=== PATIENT | female | born 1940 | race African-American/Black ===

== ENCOUNTER 2022-03-11 16:15 | Inpatient (IN) | payer OTHER ==
[2022-03-11] MEDS ORDERED: VANCOMYCIN 1 GM in D5W (PRE-DOCKED) 1,000 MG/250 ML IVPB ONE (16:53)
[2022-03-11] MEDS ORDERED: CEFEPIME HCL/D5W 2 GM/50 ML BAG IVPB ONE (16:53)
[2022-03-11] MEDS ORDERED: levETIRAcetam 500 MG/5 ML INJECTION VIAL IVPB ONE ×2 (16:53→17:59)
[2022-03-11 17:34] LABS: ARTERIAL BLD GAS O2 SATURATION 98.2 % (95-98); ARTERIAL BLOOD GAS BASE EXCESS 10.3 mmol/L (-2-2); ARTERIAL BLOOD GAS PO2 113.8 mmHg (80-100); ARTERIAL BLOOD GAS pH 7.436 (7.350-7.450)
[2022-03-11 17:41] LABS: BASO % 0.3 % (0-2.0); EOS % 0.5 % (0-4.5); HEMATOCRIT 27.6 % (32.4-45.2); HEMOGLOBIN 9.1 GM/dL (10.7-15.3); LYMPH % 20.2 % (8-40); MCH 33.9 pg (25.7-33.7); MCHC 33.1 g/dl (32.0-36.0); MEAN CELL VOLUME 102.4 fl (80-96); MEAN PLT VOLUME 10.6 fl (7.5-11.1); MONO % 16.3 % (3.8-10.2); NEUT % 62.7 % (42.8-82.8); PLATELET COUNT 147 10^3/uL (134-434); RBC 2.69 M/mm3 (3.60-5.2); RDW 22.4 % (11.6-15.6); WHITE BLOOD COUNT 7.4 K/mm3 (4.0-10.0)
[2022-03-11 17:47] LABS: INR 1.4 (0.83-1.09); PROTHROMBIN TIME (PATIENT) 16.1 SEC (9.7-13.0)
[2022-03-11 17:50] LABS: ACTIVATED PTT 36.8 SECONDS (25.2-36.5)
[2022-03-11 17:59] LABS: CHLORIDE 101 mmol/L (98-107); SODIUM 138 mmol/L (136-145)
[2022-03-11] MEDS ORDERED: VANCOMYCIN/WATER FOR INJ (PEG) 1,000 MG/200 ML BAG IVPB ONE (18:00)
[2022-03-11] MEDS ORDERED: CEFEPIME 2 GM/100 ML BAG IVPB ONE (18:00)
[2022-03-11 18:01] LABS: ALBUMIN 1.3 g/dl (3.4-5.0); CALCIUM 8.3 mg/dL (8.5-10.1)
[2022-03-11 18:02] LABS: ANION GAP 3 MMOL/L (8-16); BLOOD UREA NITROGEN 27.1 mg/dL (7-18); CO2 34 mmol/L (21-32); GLUCOSE,RANDOM 84 mg/dL (74-106)
[2022-03-11 18:05] LABS: CREATININE 0.4 mg/dL (0.55-1.3)
[2022-03-11 18:06] LABS: SGOT/AST 25 U/L (15-37); SGPT/ALT 8 U/L (13-61)
[2022-03-11 18:07] LABS: ALK PHOS 86 U/L (45-117); BILIRUBIN,TOTAL 0.4 mg/dL (0.2-1); TOT PROT 6.7 g/dl (6.4-8.2)
[2022-03-11 18:08] LABS: ANISOCYTOSIS 3+; MACROCYTOSIS 2+; TARGET CELLS 1+
[2022-03-11 18:43] LABS: EPI CELLS 2 /uL (0-25.1); HYALINE CASTS 0 /uL (0-3.1); PH,URINE 5.5 (5.0-8.0); URINE APPEARANCE Error; URINE BACTERIA 582 /uL (0-1359); URINE BILIRUBIN NEGATIVE (NEGATIVE); URINE COLOR DK YELLOW; URINE GLUCOSE (UA) NEGATIVE (NEGATIVE); URINE KETONE NEGATIVE (NEGATIVE); URINE LEUK ESTERASE 3+ (NEGATIVE); URINE NITRITE NEGATIVE (NEGATIVE); URINE PROTEIN 1+ (NEGATIVE); URINE RBC 51 /uL (0-23.9); URINE WBC 1336 /uL (0-25.8)
[2022-03-11] MEDS ORDERED: ACETAMINOPHEN 325 MG TABLET (FP) PO PRN ×2 (22:31→23:25)
[2022-03-11] MEDS ORDERED: FUROSEMIDE 40 MG/4 ML INJECTABLE VIAL IVPUSH ONE (23:40)
[2022-03-11] MEDS ORDERED: ZINC OXIDE/PANTHENOL/VITAMIN E 56 GM TUBE TP PRN (23:42)
[2022-03-11] MEDS ORDERED: CEFEPIME 2 GM in DEXTROSE 5%-WATER 100 ML IVPB SCH (23:45)
[2022-03-12] MEDS ORDERED: BISACODYL 10 MG SUPP.RECT PR PRN (00:37)
[2022-03-12] MEDS ORDERED: LORazepam 2 MG/ML SDV VIAL SCH (00:45)
[2022-03-12 05:46] LABS: ARTERIAL BLD GAS O2 SATURATION 97.7 % (95-98); ARTERIAL BLOOD GAS BASE EXCESS 10.4 mmol/L (-2-2); ARTERIAL BLOOD GAS PO2 103.5 mmHg (80-100); ARTERIAL BLOOD GAS pH 7.424 (7.350-7.450)
[2022-03-12 05:50] LABS: ALLENS TEST POSITIVE
[2022-03-12] MEDS: levETIRAcetam 500 MG/5 ML ORAL SOLUTION (UNIT-DOSE CUPS) PO SCH ×3 (06:28→22:03)
[2022-03-12] MEDS ORDERED: FUROSEMIDE 40 MG/4 ML INJECTABLE VIAL IVPUSH ONE ×2 (06:30→06:55)
[2022-03-12 07:36] LABS: INR 1.32 (0.83-1.09); PROTHROMBIN TIME (PATIENT) 15.2 SEC (9.7-13.0)
[2022-03-12 07:38] LABS: ACTIVATED PTT 36.9 SECONDS (25.2-36.5)
[2022-03-12] MEDS ORDERED: VANCOMYCIN/WATER 1,250 MG/250 ML BAG IVPB SCH (08:00)
[2022-03-12 08:05] LABS: CHLORIDE 103 mmol/L (98-107); SODIUM 141 mmol/L (136-145)
[2022-03-12 08:06] LABS: CALCIUM 8.1 mg/dL (8.5-10.1)
[2022-03-12 08:07] LABS: ALBUMIN 1.2 g/dl (3.4-5.0); ANION GAP 5 MMOL/L (8-16); CO2 34 mmol/L (21-32); GLUCOSE,RANDOM 61 mg/dL (74-106); MAGNESIUM 2.1 mg/dL (1.8-2.4)
[2022-03-12 08:10] LABS: CREATININE 0.3 mg/dL (0.55-1.3); PHOSPHOROUS 2.9 mg/dL (2.5-4.9); SGOT/AST 28 U/L (15-37); SGPT/ALT 10 U/L (13-61)
[2022-03-12 08:11] LABS: BILIRUBIN,TOTAL 0.6 mg/dL (0.2-1); TOT PROT 6.8 g/dl (6.4-8.2)
[2022-03-12 08:13] LABS: ALK PHOS 78 U/L (45-117)
[2022-03-12 08:15] LABS: N-TERMINAL BNP 5931.8 pg/ml (5-450)
[2022-03-12] MEDS: VANCOMYCIN/WATER 1,250 MG/250 ML BAG IVPB SCH ×2 (08:20→20:31)
[2022-03-12] MEDS: APIXABAN 5 MG TABLET PO SCH ×2 (09:33→22:03)
[2022-03-12] MEDS: FAMOTIDINE 20 MG TABLET PO SCH ×2 (09:33→22:03)
[2022-03-12] MEDS: POLYETHYLENE GLYCOL (HEALTHYLAX) 3350 17 GM PACKET PO SCH ×2 (09:35→22:03)
[2022-03-12] MEDS: FUROSEMIDE 40 MG/4 ML INJECTABLE VIAL IVPUSH SCH (09:40)
[2022-03-12] MEDS ORDERED: MUPIROCIN 2% TOPICAL OINTMENT FOR DECOLONIZATION NS SCH (10:00)
[2022-03-12] MEDS: CEFEPIME 2 GM in DEXTROSE 5%-WATER 100 ML IVPB SCH ×2 (10:44→22:03)
[2022-03-12] MEDS: LOSARTAN 50MG/HCTZ 12.5MG 1 TAB PO SCH (10:44)
[2022-03-12] MEDS: MUPIROCIN 2% TOPICAL OINTMENT FOR DECOLONIZATION NS SCH ×2 (12:15→22:04)
[2022-03-12] MEDS: SILVER SULFADIAZINE 1% TOP CREAM 50 GM JAR TP SCH (12:15)
[2022-03-12] MEDS ORDERED: DEXTROSE 50%-WATER 25 GM/50 ML DISP.SYRIN ONE ×2 (13:31→16:50)
[2022-03-12 14:28] LABS: BASO % 1.1 % (0-2.0); EOS % 0.4 % (0-4.5); HEMATOCRIT 26.6 % (32.4-45.2); HEMOGLOBIN 8.7 GM/dL (10.7-15.3); LYMPH % 11.6 % (8-40); MCH 33.2 pg (25.7-33.7); MCHC 32.8 g/dl (32.0-36.0); MEAN CELL VOLUME 101.1 fl (80-96); MEAN PLT VOLUME 8.8 fl (7.5-11.1); MONO % 7.6 % (3.8-10.2); NEUT % 79.3 % (42.8-82.8); PLATELET COUNT 139 10^3/uL (134-434); RBC 2.63 M/mm3 (3.60-5.2); RDW 21.3 % (11.6-15.6)
[2022-03-12] MEDS ORDERED: DEXTROSE 50%-WATER 25 GM/50 ML DISP.SYRIN IVPUSH STA ×2 (14:39→16:44)
[2022-03-12] MEDS: AMINO ACIDS/PROTEIN HYDROLYS 30 ML LIQUID.PKT GT SCH (16:53)
[2022-03-12] MEDS ORDERED: CHLORHEXIDINE GLUCONATE 4% CLEANSER FOR DECOLONIZATION TP SCH (22:00)
[2022-03-12] MEDS: CHLORHEXIDINE GLUCONATE 4% CLEANSER FOR DECOLONIZATION TP SCH (22:04)
[2022-03-13 07:40] LABS: BASO % 1.1 % (0-2.0); HEMOGLOBIN 9.1 GM/dL (10.7-15.3); LYMPH % 29.4 % (8-40); MCH 33.5 pg (25.7-33.7); MCHC 32.7 g/dl (32.0-36.0); MEAN CELL VOLUME 102.4 fl (80-96); MEAN PLT VOLUME 10.4 fl (7.5-11.1); MONO % 12.3 % (3.8-10.2); NEUT % 56.2 % (42.8-82.8); PLATELET COUNT 152 10^3/uL (134-434); RBC 2.73 M/mm3 (3.60-5.2); RDW 20.9 % (11.6-15.6); WHITE BLOOD COUNT 7.4 K/mm3 (4.0-10.0)
[2022-03-13 07:49] LABS: BLOOD UREA NITROGEN 26.4 mg/dL (7-18); CALCIUM 8.2 mg/dL (8.5-10.1)
[2022-03-13 07:50] LABS: ALBUMIN 1.2 g/dl (3.4-5.0)
[2022-03-13 07:53] LABS: CREATININE 0.4 mg/dL (0.55-1.3)
[2022-03-13 07:54] LABS: BILIRUBIN,TOTAL 0.6 mg/dL (0.2-1); TOT PROT 6.8 g/dl (6.4-8.2)
[2022-03-13] MEDS: levETIRAcetam 500 MG/5 ML ORAL SOLUTION (UNIT-DOSE CUPS) PO SCH (09:25)
[2022-03-13] MEDS: CEFEPIME 2 GM in DEXTROSE 5%-WATER 100 ML IVPB SCH (09:25)
[2022-03-13] MEDS: POLYETHYLENE GLYCOL (HEALTHYLAX) 3350 17 GM PACKET PO SCH (09:25)
[2022-03-13] MEDS: AMINO ACIDS/PROTEIN HYDROLYS 30 ML LIQUID.PKT GT SCH ×3 (09:25→17:44)
[2022-03-13] MEDS: LOSARTAN 50MG/HCTZ 12.5MG 1 TAB PO SCH (09:26)
[2022-03-13] MEDS: APIXABAN 5 MG TABLET PO SCH (09:26)
[2022-03-13] MEDS: FAMOTIDINE 20 MG TABLET PO SCH (09:26)
[2022-03-13] MEDS: FUROSEMIDE 40 MG/4 ML INJECTABLE VIAL IVPUSH SCH (09:26)
[2022-03-13] MEDS: MUPIROCIN 2% TOPICAL OINTMENT FOR DECOLONIZATION NS SCH ×2 (11:24→21:14)
[2022-03-13] MEDS: SILVER SULFADIAZINE 1% TOP CREAM 50 GM JAR TP SCH (11:24)
[2022-03-13] MEDS ORDERED: METOPROLOL TARTRATE 5 MG/5 ML VIAL IVPUSH STA (14:10)
[2022-03-13] MEDS ORDERED: METOPROLOL TARTRATE 5 MG/5 ML VIAL ONE (14:14)
[2022-03-13] MEDS: CEFEPIME 1 GM in DEXTROSE 5%-WATER 100 ML IVPB SCH ×2 (15:58→21:12)
[2022-03-13] MEDS: VANCOMYCIN/WATER FOR INJ (PEG) 1,000 MG/200 ML BAG IVPB SCH (15:58)
[2022-03-13] MEDS ORDERED: ACETAMINOPHEN 650 MG/20.3 ML ORAL SOLUTION (CUPS) GT PRN (16:51)
[2022-03-13] MEDS: APIXABAN 5 MG TABLET PEG SCH (21:14)
[2022-03-13] MEDS: levETIRAcetam 500 MG/5 ML ORAL SOLUTION (UNIT-DOSE CUPS) GT SCH (21:14)
[2022-03-13] MEDS: POLYETHYLENE GLYCOL (HEALTHYLAX) 3350 17 GM PACKET GT SCH (21:15)
[2022-03-13] MEDS: CHLORHEXIDINE GLUCONATE 4% CLEANSER FOR DECOLONIZATION TP SCH (21:15)
[2022-03-13] MEDS: FAMOTIDINE 40 MG/5 ML ORAL SUSPENSION GT SCH (21:17)
[2022-03-13] MEDS: VALPROATE SODIUM 250 MG/5 ML UNIT DOSE CUP GT SCH (21:24)
[2022-03-13] MEDS ORDERED: DIVALPROEX SODIUM 250 MG TABLET E.C. PO SCH (22:00)
[2022-03-14] MEDS: CEFEPIME 1 GM in DEXTROSE 5%-WATER 100 ML IVPB SCH ×3 (01:59→18:30)
[2022-03-14] MEDS: VANCOMYCIN/WATER FOR INJ (PEG) 1,000 MG/200 ML BAG IVPB SCH ×2 (02:00→14:51)
[2022-03-14 07:34] LABS: HEMATOCRIT 26.7 % (32.4-45.2); HEMOGLOBIN 8.8 GM/dL (10.7-15.3); MCHC 32.9 g/dl (32.0-36.0); MEAN CELL VOLUME 103.3 fl (80-96); MEAN PLT VOLUME 10.7 fl (7.5-11.1); PLATELET COUNT 124 10^3/uL (134-434); RBC 2.58 M/mm3 (3.60-5.2); WHITE BLOOD COUNT 6.2 K/mm3 (4.0-10.0)
[2022-03-14 08:02] LABS: CALCIUM 8.2 mg/dL (8.5-10.1)
[2022-03-14 08:03] LABS: BLOOD UREA NITROGEN 30.9 mg/dL (7-18); MAGNESIUM 1.8 mg/dL (1.8-2.4)
[2022-03-14 08:06] LABS: CREATININE 0.4 mg/dL (0.55-1.3); PHOSPHOROUS 2.8 mg/dL (2.5-4.9)
[2022-03-14] MEDS: AMINO ACIDS/PROTEIN HYDROLYS 30 ML LIQUID.PKT GT SCH ×3 (08:17→18:30)
[2022-03-14] MEDS ORDERED: LOSARTAN 50MG/HCTZ 12.5MG 1 TAB GT SCH (10:00)
[2022-03-14] MEDS: levETIRAcetam 500 MG/5 ML ORAL SOLUTION (UNIT-DOSE CUPS) GT SCH ×2 (10:02→22:43)
[2022-03-14] MEDS: FUROSEMIDE 40 MG/4 ML INJECTABLE VIAL IVPUSH SCH (10:03)
[2022-03-14] MEDS: POLYETHYLENE GLYCOL (HEALTHYLAX) 3350 17 GM PACKET GT SCH ×2 (10:04→22:43)
[2022-03-14] MEDS: VALPROATE SODIUM 250 MG/5 ML UNIT DOSE CUP GT SCH ×2 (10:28→22:43)
[2022-03-14] MEDS: APIXABAN 5 MG TABLET PEG SCH ×2 (10:28→22:43)
[2022-03-14] MEDS: MUPIROCIN 2% TOPICAL OINTMENT FOR DECOLONIZATION NS SCH ×2 (10:28→22:42)
[2022-03-14] MEDS: SILVER SULFADIAZINE 1% TOP CREAM 50 GM JAR TP SCH (10:29)
[2022-03-14] MEDS: FAMOTIDINE 40 MG/5 ML ORAL SUSPENSION GT SCH ×2 (10:29→22:43)
[2022-03-14] MEDS ORDERED: BACITRACIN 15 GM TUBE TOPICAL OINTMENT TP SCH (11:00)
[2022-03-14] MEDS: CHLORHEXIDINE GLUCONATE 4% CLEANSER FOR DECOLONIZATION TP SCH (22:43)
[2022-03-15] MEDS: CEFEPIME 1 GM in DEXTROSE 5%-WATER 100 ML IVPB SCH ×3 (01:45→17:21)
[2022-03-15] MEDS: VANCOMYCIN/WATER FOR INJ (PEG) 1,000 MG/200 ML BAG IVPB SCH ×2 (02:39→14:58)
[2022-03-15 07:32] LABS: BASO % 1.3 % (0-2.0); HEMOGLOBIN 9.5 GM/dL (10.7-15.3); LYMPH % 38.5 % (8-40); MCH 34.2 pg (25.7-33.7); MCHC 32.7 g/dl (32.0-36.0); MEAN CELL VOLUME 104.5 fl (80-96); MONO % 15.2 % (3.8-10.2); PLATELET COUNT 141 10^3/uL (134-434); RBC 2.78 M/mm3 (3.60-5.2); WHITE BLOOD COUNT 5.8 K/mm3 (4.0-10.0)
[2022-03-15 07:34] LABS: INR 1.4 (0.83-1.09); PROTHROMBIN TIME (PATIENT) 16.2 SEC (9.7-13.0)
[2022-03-15 07:37] LABS: ACTIVATED PTT 39.2 SECONDS (25.2-36.5)
[2022-03-15 07:39] LABS: CALCIUM 7.9 mg/dL (8.5-10.1)
[2022-03-15 07:40] LABS: ALBUMIN 1.1 g/dl (3.4-5.0); BLOOD UREA NITROGEN 28.2 mg/dL (7-18); MAGNESIUM 1.9 mg/dL (1.8-2.4)
[2022-03-15 07:43] LABS: CREATININE 0.4 mg/dL (0.55-1.3); PHOSPHOROUS 2.1 mg/dL (2.5-4.9)
[2022-03-15 07:44] LABS: BILIRUBIN,TOTAL 0.4 mg/dL (0.2-1)
[2022-03-15 07:45] LABS: TOT PROT 6.9 g/dl (6.4-8.2)
[2022-03-15] MEDS: BACITRACIN 15 GM TUBE TOPICAL OINTMENT TP SCH (10:06)
[2022-03-15] MEDS: POLYETHYLENE GLYCOL (HEALTHYLAX) 3350 17 GM PACKET GT SCH ×2 (10:06→21:39)
[2022-03-15] MEDS: FUROSEMIDE 40 MG/4 ML INJECTABLE VIAL IVPUSH SCH (10:06)
[2022-03-15] MEDS: levETIRAcetam 500 MG/5 ML ORAL SOLUTION (UNIT-DOSE CUPS) GT SCH ×2 (10:06→21:39)
[2022-03-15] MEDS: AMINO ACIDS/PROTEIN HYDROLYS 30 ML LIQUID.PKT GT SCH ×3 (10:06→17:22)
[2022-03-15] MEDS: LOSARTAN POTASSIUM 50 MG TABLET GT SCH (10:06)
[2022-03-15] MEDS: MUPIROCIN 2% TOPICAL OINTMENT FOR DECOLONIZATION NS SCH ×2 (10:06→21:38)
[2022-03-15] MEDS: FAMOTIDINE 40 MG/5 ML ORAL SUSPENSION GT SCH ×2 (10:07→21:39)
[2022-03-15] MEDS: SILVER SULFADIAZINE 1% TOP CREAM 50 GM JAR TP SCH (10:09)
[2022-03-15] MEDS: VALPROATE SODIUM 250 MG/5 ML UNIT DOSE CUP GT SCH ×2 (11:31→21:38)
[2022-03-15] MEDS: APIXABAN 5 MG TABLET PEG SCH ×2 (11:31→21:38)
[2022-03-15] MEDS: CHLORHEXIDINE GLUCONATE 4% CLEANSER FOR DECOLONIZATION TP SCH (21:39)
[2022-03-16] MEDS ORDERED: LORazepam 2 MG/ML SDV VIAL SCH (01:28)
[2022-03-16] MEDS ORDERED: BISACODYL 10 MG SUPP.RECT PR PRN (01:28)
[2022-03-16] MEDS ORDERED: ZINC OXIDE/PANTHENOL/VITAMIN E 56 GM TUBE TP PRN (01:28)
[2022-03-16] MEDS: CEFEPIME 1 GM in DEXTROSE 5%-WATER 100 ML IVPB SCH ×3 (02:09→17:45)
[2022-03-16] MEDS: AMINO ACIDS/PROTEIN HYDROLYS 30 ML LIQUID.PKT GT SCH ×3 (08:29→17:45)
[2022-03-16] MEDS ORDERED: MUPIROCIN 2% TOPICAL OINTMENT FOR DECOLONIZATION NS SCH (10:00)
[2022-03-16] MEDS ORDERED: FUROSEMIDE 40 MG/4 ML INJECTABLE VIAL IVPUSH SCH (10:00)
[2022-03-16] MEDS: FUROSEMIDE 40 MG/5 ML UNIT-DOSE CUP PEG SCH (10:36)
[2022-03-16] MEDS: FAMOTIDINE 40 MG/5 ML ORAL SUSPENSION GT SCH ×2 (10:37→22:00)
[2022-03-16] MEDS: VALPROATE SODIUM 250 MG/5 ML UNIT DOSE CUP GT SCH ×2 (10:37→21:59)
[2022-03-16] MEDS: SILVER SULFADIAZINE 1% TOP CREAM 50 GM JAR TP SCH (10:37)
[2022-03-16] MEDS: LOSARTAN POTASSIUM 50 MG TABLET GT SCH (10:37)
[2022-03-16] MEDS: APIXABAN 5 MG TABLET PEG SCH ×2 (10:38→21:59)
[2022-03-16] MEDS: levETIRAcetam 500 MG/5 ML ORAL SOLUTION (UNIT-DOSE CUPS) GT SCH ×2 (10:38→21:59)
[2022-03-16] MEDS: POLYETHYLENE GLYCOL (HEALTHYLAX) 3350 17 GM PACKET GT SCH ×2 (10:39→21:59)
[2022-03-16] MEDS: BACITRACIN 15 GM TUBE TOPICAL OINTMENT TP SCH (10:39)
[2022-03-16 14:49] VITALS: BMI 33.4
[2022-03-16] MEDS ORDERED: CHLORHEXIDINE GLUCONATE 4% CLEANSER FOR DECOLONIZATION TP SCH (22:00)
[2022-03-17] MEDS: CEFEPIME 1 GM in DEXTROSE 5%-WATER 100 ML IVPB SCH ×2 (01:27→09:34)
[2022-03-17] MEDS ORDERED: SCOPOLAMINE HYDROBROMIDE 1 PATCH PATCH.TD72 TD SCH (09:15)
[2022-03-17] MEDS: FAMOTIDINE 40 MG/5 ML ORAL SUSPENSION GT SCH ×2 (09:32→22:34)
[2022-03-17] MEDS: LOSARTAN POTASSIUM 50 MG TABLET GT SCH (09:33)
[2022-03-17] MEDS: FUROSEMIDE 40 MG/5 ML UNIT-DOSE CUP PEG SCH (09:33)
[2022-03-17] MEDS: AMINO ACIDS/PROTEIN HYDROLYS 30 ML LIQUID.PKT GT SCH ×3 (09:33→18:45)
[2022-03-17] MEDS: APIXABAN 5 MG TABLET PEG SCH ×2 (09:33→22:34)
[2022-03-17] MEDS: levETIRAcetam 500 MG/5 ML ORAL SOLUTION (UNIT-DOSE CUPS) GT SCH ×2 (09:33→23:16)
[2022-03-17] MEDS: VALPROATE SODIUM 250 MG/5 ML UNIT DOSE CUP GT SCH ×2 (09:35→22:34)
[2022-03-17] MEDS: BACITRACIN 15 GM TUBE TOPICAL OINTMENT TP SCH (09:35)
[2022-03-17] MEDS: POLYETHYLENE GLYCOL (HEALTHYLAX) 3350 17 GM PACKET GT SCH ×2 (09:35→22:36)
[2022-03-17] MEDS: SILVER SULFADIAZINE 1% TOP CREAM 50 GM JAR TP SCH (09:36)
[2022-03-18] MEDS: POLYETHYLENE GLYCOL (HEALTHYLAX) 3350 17 GM PACKET GT SCH ×2 (09:33→22:21)
[2022-03-18] MEDS: VALPROATE SODIUM 250 MG/5 ML UNIT DOSE CUP GT SCH ×2 (09:34→22:20)
[2022-03-18] MEDS: APIXABAN 5 MG TABLET PEG SCH ×2 (09:34→22:20)
[2022-03-18] MEDS: AMINO ACIDS/PROTEIN HYDROLYS 30 ML LIQUID.PKT GT SCH ×3 (09:34→17:15)
[2022-03-18] MEDS: LOSARTAN POTASSIUM 50 MG TABLET GT SCH (09:34)
[2022-03-18] MEDS: FAMOTIDINE 40 MG/5 ML ORAL SUSPENSION GT SCH ×2 (09:35→22:21)
[2022-03-18] MEDS: FUROSEMIDE 40 MG/5 ML UNIT-DOSE CUP PEG SCH (09:35)
[2022-03-18] MEDS: BACITRACIN 15 GM TUBE TOPICAL OINTMENT TP SCH (09:36)
[2022-03-18] MEDS: levETIRAcetam 500 MG/5 ML ORAL SOLUTION (UNIT-DOSE CUPS) GT SCH ×2 (12:10→22:21)
[2022-03-18] MEDS: SILVER SULFADIAZINE 1% TOP CREAM 50 GM JAR TP SCH (12:40)
[2022-03-19 01:42] VITALS: PULSE 70
[2022-03-19 06:43] VITALS: TEMP 99.4
[2022-03-19 08:27] VITALS: RESP 15
[2022-03-19] MEDS: BACITRACIN 15 GM TUBE TOPICAL OINTMENT TP SCH (09:59)
[2022-03-19] MEDS: APIXABAN 5 MG TABLET PEG SCH (09:59)
[2022-03-19] MEDS: POLYETHYLENE GLYCOL (HEALTHYLAX) 3350 17 GM PACKET GT SCH (09:59)
[2022-03-19] MEDS: AMINO ACIDS/PROTEIN HYDROLYS 30 ML LIQUID.PKT GT SCH (09:59)
[2022-03-19] MEDS: VALPROATE SODIUM 250 MG/5 ML UNIT DOSE CUP GT SCH (09:59)
[2022-03-19] MEDS: LOSARTAN POTASSIUM 50 MG TABLET GT SCH (09:59)
[2022-03-19] MEDS: SILVER SULFADIAZINE 1% TOP CREAM 50 GM JAR TP SCH (10:00)
[2022-03-19] MEDS: FUROSEMIDE 40 MG/5 ML UNIT-DOSE CUP PEG SCH (10:00)
[2022-03-19] MEDS: FAMOTIDINE 40 MG/5 ML ORAL SUSPENSION GT SCH (10:00)
[2022-03-19] MEDS: levETIRAcetam 500 MG/5 ML ORAL SOLUTION (UNIT-DOSE CUPS) GT SCH (10:00)
[2022-03-19 18:52] VITALS: BP 130/74
== END 2022-03-19 11:25 | DRG 100 ==
LOC: JER 16:15 → JERBED 19:47 → JICU 22:12 → J5S 03-16 00:01
PROVIDERS: ADMIT Internal Medicine Pulmonary Disease; ATTEND Family Medicine
PROC: 5A1955Z Respiratory Ventilation, Greater than 96 Consecutive Hours (ICD-10-PCS; principal; 2022-03-11)
DX: G40.409 Other generalized epilepsy and epileptic syndromes, not intractable, without status epilepticus (principal); J96.90 Respiratory failure, unspecified, unspecified whether with hypoxia or hypercapnia; L89.153 Pressure ulcer of sacral region, stage 3; I50.22 Chronic systolic (congestive) heart failure; N39.0 Urinary tract infection, site not specified; G93.1 Anoxic brain damage, not elsewhere classified; E87.29 Other acidosis; Z99.11 Dependence on respirator [ventilator] status; I73.9 Peripheral vascular disease, unspecified; I11.0 Hypertensive heart disease with heart failure; I69.391 Dysphagia following cerebral infarction; I69.398 Other sequelae of cerebral infarction; I48.0 Paroxysmal atrial fibrillation; J84.10 Pulmonary fibrosis, unspecified; Z93.0 Tracheostomy status; I87.2 Venous insufficiency (chronic) (peripheral); B96.5 Pseudomonas (aeruginosa) (mallei) (pseudomallei) as the cause of diseases classified elsewhere
CPT/HCPCS: 0241U-QW; 36415; 36600; 70450-TC; 71045-TC-FY; 80048; 80053; 80164; 81003; 82308; 82550; 82553; 82803; 82962; 83605; 83735; 83880; 84100; 84439; 84443; 84484; 85025; 85027; 85610; 85730; 86140; 86850; 86900; 86901; 87040; 87086; 87186; 93005; 93010; 93306-TC; 94002; 95816; 97162-GP; 99285-25; C9803-CS; U0003; U0005